=== PATIENT | female | born 1930 | race Caucasian/White ===

== ENCOUNTER 2016-12-31 09:22 | Day surgery (SDC) | payer OTHER ==
[2016-12-31] VITALS (10 sets, daily range): BP systolic 118–162; BP diastolic 52–75; PULSE 56–62; RESP 15–20; Ht 152.4 cm; Wt 58.6 kg
[~2016-12-31] VITALS: Ht 152.4 cm; Wt 58.6 kg
[~2016-12-31 09:22] MED LIST: ALPR0.25 PO; ASPI-664 PO; CIPR500T4 PO; DILT120C77 PO; DOCU-144 PO; LOSA50TA6 PO; MESA0.372 PO; MESA400C PO; METR500T14 PO; PANT40TA4 PO; PENT400T2 PO; SENN8.6C3 PO; UDREG PO
[2016-12-31] MEDS ORDERED: CEFAZOLIN 2 GM/50 ML (PMX) 50 ML IVPB ONE (09:30)
[2016-12-31] MEDS ORDERED: LACTATED RINGER'S 1,000 ML IV* SCH (09:30)
[2016-12-31] MEDS ORDERED: MESA0.372 PO (10:02)
[2016-12-31] MEDS ORDERED: PENT400T2 PO (10:04)
[2016-12-31] MEDS ORDERED: LOSA50TA6 PO (10:04)
[2016-12-31] MEDS ORDERED: ALPR0.5T PO (10:49)
--- NOTE | 2016-12-31 12:26 | HPN ---
Date/Time of Note Date/Time of Note DATE: 12/31/16 TIME: 12:25 Interval H&P Admission Note Pt. seen H&P reviewed: No system changes REBECCA GONZALEZ MD Dec 31, 2016 12:26
[2016-12-31] MEDS ORDERED: GENTAMICIN 80 MG INJ ONE (12:43)
[2016-12-31] MEDS ORDERED: LIDOCAINE 1%/EPI 30 ML INJ ONE (12:43)
[2016-12-31] MEDS ORDERED: POLYMYXIN/BACITRACIN 1L IRRIG ONE (12:43)
[2016-12-31] MEDS ORDERED: MUPIROCIN 2% 15 GM CR ONE (12:43)
[2016-12-31] MEDS ORDERED: BUPIVACAINE 0.25% (MPF) 30 ML INJ ONE (12:43)
[2016-12-31] MEDS ORDERED: MIDAZOLAM 1 MG/ML 2 ML INJ ONE (13:02)
[2016-12-31] MEDS ORDERED: FENTAnyl 50 MCG/ML VIAL ONE (13:02)
[2016-12-31] MEDS ORDERED: FENTAnyl 50 MCG/ML VIAL IV PRN (13:30)
[2016-12-31] MEDS ORDERED: ONDANSETRON 4 MG INJ IV PRN (13:30)
[2016-12-31] MEDS ORDERED: DIPHENHYDRAMINE 50 MG INJ IV PRN (13:30)
[2016-12-31] MEDS ORDERED: MEPERIDINE 25 MG INJ IV PRN (13:30)
[2016-12-31] MEDS ORDERED: hydrALAzine 20 MG INJ IV PRN (13:30)
[2016-12-31] MEDS ORDERED: CEFAZOLIN 1 GM INJ ONE (14:27)
[2016-12-31] MEDS ORDERED: ONDANSETRON 4 MG INJ ONE (14:27)
[2016-12-31] MEDS ORDERED: OXYCODONE/ACETAMINOPHEN (5/325) TAB PO PRN (14:30)
--- NOTE | 2016-12-31 15:34 | OPR ---
DATE OF OPERATION: 12/31/2016 PREOPERATIVE DIAGNOSIS: Cephalad atypia of left nasal tip, biopsy proven. POSTOPERATIVE DIAGNOSIS: Cephalad atypia of left nasal tip, biopsy proven. OPERATION PERFORMED: Wide excision of cephalad atypia of the left nasal tip (2.1 cm x 0.9 cm) with frozen section margin control and fasciocutaneous flap reconstruction with application of full-thick ness skin graft from left base of neck. SURGEON: Rebecca Cuadra MD ELECTRICAL LABORATORY TECHNICIAN: None. ANESTHESIA: Monitored anesthesia care with intravenous sedation. ANESTHESIOLOGIST: BETTE HINES MD Local anesthetic infiltration for postoperative pain control 25 mL of 0.5% lidocaine, 0.125% Marcai ne and 1:200,000 epinephrine solution. ESTIMATED BLOOD LOSS: 5 mL. DRAINS: None. DRESSING: Mastisol, Steri-Strip, Bactroban cream, dry sterile dressing and Tegaderm. FINDINGS: Frozen section per Aisha Mckeon MD, pathologist showed all margins free of tumor. OPERATIVE PROCEDURE: The patient received 2 grams of intravenous Ancef as preoperative antibiotic. Also with the patient in sitting position, markings were made for the planned procedure in the hold ing area. Next, in the operating room with the patient in supine position, following adequate monit oring and induction of adequate level of monitored anesthesia care with intravenous sedation by Dr. Hines, anesthesiologist, adequate amount of local anesthetic solution was injected at the base and periphery of operative area over the left nasal tip as well as the left base of neck for possible sk in graft donor site. Following routine prep and drape, operation was begun by wide excision of the tumor from left nasal tip. This specimen was marked at 12 o'clock with a cut and ink that represent ed the most cephalad segment of the specimen. This was handed to Dr. Mckeon for frozen section and permanent sections. Following preceding report of frozen section, the operative area was irrigated using copious amount of triple antibiotic solution. Hemostasis was carefully checked and assured. At this time, primary intention was noted to cause significant deformity as well as retraction and b uckling of the left alar cartilage. Therefore, a double advancement fasciocutaneous flap was elevat ed and advanced successfully, reconstructed the defect to less than half of its original size. The remainder of the defect was successfully reconstructed using application of a full-thickness skin gr aft that was harvested from the left base of neck, defatted and ____was placed on that. The skin gr aft was inset using 5-0 Monocryl sutures and the donor site was primarily closed using 4-0 Monocryl sutures. Repair was found to be satisfactory upon its completion at all sites. Dressing was applie d as mentioned above. The patient tolerated this procedure very well and left the operating room to the recovery room awake, stable and in comfortable satisfactory and stable condition. Dictated By: REBECCA RUBI/VASU Conf#: [id number] DID#: [id number]
== END 2016-12-31 16:00 | disposition home or self-care (01) ==
LOC: SDS 09:22
PROVIDERS: ATTEND Plastic Surgery
DX: L57.0 Actinic keratosis (principal); I10 Essential (primary) hypertension; E78.5 Hyperlipidemia, unspecified
CPT/HCPCS: 11446; 15732; 88305; 88331; J0690; J1580; J2250; J2405; J3010

== ENCOUNTER 2018-07-30 15:45 | Emergency (ER) | END 2018-07-30 22:13 | disposition home or self-care (01) ==